=== PATIENT | male | born 1955 | race Caucasian/White ===

== ENCOUNTER 2019-03-23 13:12 | Emergency (ER) | payer BC, SELFPAY ==
[2019-03-23 13:20] VITALS: BP 138/75; PULSE 53; RESP 16; TEMP 36.6; O2SAT 98; BMI 22.6
--- NOTE | 2019-03-23 13:32 | ED_ITS ---
HPI - Fall General: Chief Complaint: Fall Stated Complaint: right hand pain/all Time Seen by Provider: 03/23/19 13:28 History of Present Illness: HPI Narrative: Patient complains about right wrist pain been going on since 3 months ago when he fell. Never to get it looked at. Did swell quite a bit after he fell. He come here from [place] take care of his mom. He has been doing a lot of work In his brother [place] and stopped the last week or 2. Now his wrist hurts a lot and hurts all the way up to the elbow. complaint: fall Onset (ago): month(s) Fall from: standing Place fall occurred: home Loss of consciousness: None Location of injury - extremities: Right: forearm (wrist) Severity: mild Severity scale (1-10): 4 Quality: aching Associated symptoms-after fall: Reports no associated symptoms; Denies abdominal pain, chest pain or headache(s) Review of Systems Const: Denies: fever, chills or body aches Eyes: Denies: change in vision or blurry vision ENMT: Denies: throat pain or nasal congestion Card: Denies: chest pain or shortness of breath on exertion Resp: Denies: shortness of breath, productive cough or non-productive cough GI: Denies: abdominal pain, nausea or vomiting : Denies: difficulty urinating Musc: Reports: joint pain (Right wrist) and limited range of motion; Denies: extremity pain Skin/Breast: Denies: rash Neuro: Denies: headache Psych: Denies: anxiety or depression Atif/Lymph: Denies: easy bruising PFSH ED PFSH: Statuses (acute, chronic, etc) shown below reflect problem list status as previously entered and may not be historically accurate Social History Smoking and tobacco status: never smoked Physical Exam Const: COMMON NORMALS: no apparent distress, average body habitus and oriented x3 HENMT: COMMON NORMALS: normocephalic HEAD & SCALP: normal to inspection and normocephalic FACE & SINUS: normal facial exam Eye: COMMON NORMALS: conjunctivae normal GENERAL EYE: normal appearance of both eyes CONJUNCTIVA: Yes conjunctivae normal Neck/C-Spine: COMMON NORMALS: no JVD Chest: COMMONS NORMALS: inspection of chest normal Resp: COMMON NORMALS: normal respiratory effort and clear to auscultation bilaterally AUSCULTATION: clear to auscultation bilaterally Cardio: COMMON NORMALS: no JVD, regular rate and regular rhythm RATE: regular rate RHYTHM: regular rhythm GI: COMMON NORMALS: normal to inspection, nondistended, normoactive bowel sounds Extremity: COMMON NORMALS: normal to inspection and full ROM RIGHT UPPER EXTREMITY: Yes wrist (Patient has tenderness throughout the right wrist limited range of motion. No acute swelling or erythema noted.) Neuro: COMMON NORMALS: oriented x3 Course Vital Signs: Vital signs: Vital Signs Temperature 97.9 F 03/23/19 13:20 Pulse Rate 53 L 03/23/19 13:20 Respiratory Rate 16 03/23/19 13:20 Blood Pressure 138/75 03/23/19 13:20 Pulse Oximetry 98 03/23/19 13:20 Coding Level of Care Code ED [employer] for Christiano Hernandez
--- NOTE | 2019-03-23 13:32 | XR_ITS ---
WS: [id number] WRIST RIGHT TECHNIQUE: 3 views of the right wrist CLINICAL INFORMATION: pain/fall COMPARISON: None. FINDINGS: Normal radiocarpal joint. Scaphoid is normal in appearance. No evidence of radiocarpal dislocation. D istal radius and ulna are normal in appearance. XR/XR wrist RT min 3V* [id number] IMPRESSION: No acute fractures. Vascular calcification.
[2019-03-23] MEDS: methylPREDNISolone (DEPO) 80 MG/ML INJ 1 mL IM (13:53)
[2019-03-23] MEDS: ketorolac 60 mg/2 mL INJ IM (13:54)
[2019-03-23 14:08] VITALS: BP 130/72; PULSE 78; RESP 18; O2SAT 97
== END 2019-03-23 14:09 | disposition home or self-care (01) ==
LOC: ER 14:17
PROVIDERS: Emergency Provider Nurse Practitioner Family
DX: M79.641 Pain in right hand (principal)
CPT/HCPCS: 73110; 96372; 99281; 99283; J1040; J1885